=== PATIENT | female | born 1955 | race Caucasian/White ===

== ENCOUNTER → 2022-09-04 | Day surgery (SDC) | payer MEDICARE ==
[~2022-09-04] VITALS: Ht 175.2 cm; Wt 104.3 kg
[~2022-09-04] MED LIST: AMITRIPTYLINE10 MG PO; ARIPIPRAZOLE5 MG PO; CLONAZEPAM1 MG PO; CYMBALTA60 MG PO; HYDROCODONE-AC1 EAC1 PO; HYDROXYZINE PAM25 M1 PO; IBUPROFEN600 MG PO; LIPITOR40 MG PO; METHOCARBAMOL500 M1 PO; METOPROLOL SUCC25 M2 PO; OMNICEF300 MG PO; PANTOPRAZOLE SO40 MG PO; PRAMIPEXOLE0.125 MG PO; PREGABALIN100 MG PO; TECFIDERA240 M2 PO; TRELEGY ELLIPT1 EACH INH
[2022-09-04 07:30] VITALS: BP 143/83
[2022-09-04 08:35] VITALS: BP 119/47
[2022-09-04 08:50] VITALS: BP 75/42
[2022-09-04 09:05] VITALS: BP 132/36
== END | disposition home or self-care (01) ==
LOC: SDC 09-01 10:15
PROVIDERS: ATTEND Surgery
DX: Z12.11 Encounter for screening for malignant neoplasm of colon (principal); D12.0 Benign neoplasm of cecum; D12.4 Benign neoplasm of descending colon; K57.30 Diverticulosis of large intestine without perforation or abscess without bleeding; F41.9 Anxiety disorder, unspecified; F32.A Depression, unspecified; G35 Multiple sclerosis; Z85.3 Personal history of malignant neoplasm of breast; E78.00 Pure hypercholesterolemia, unspecified; Z98.890 Other specified postprocedural states; Z90.49 Acquired absence of other specified parts of digestive tract

== ENCOUNTER → 2022-12-17 | Outpatient (CLI) | payer MEDICARE | END | disposition short-term general hospital (02) | LOC: LAB 11:22 | PROVIDERS: ATTEND Surgery | DX: K43.9 Ventral hernia without obstruction or gangrene (principal) ==

== ENCOUNTER → 2022-12-23 | Outpatient (CLI) | payer MEDICARE | END | disposition home or self-care (01) | LOC: CT 13:00 | PROVIDERS: ATTEND Surgery | DX: K43.9 Ventral hernia without obstruction or gangrene (principal) ==